=== PATIENT | male | born 1960 ===

== ENCOUNTER → 2017-02-03 | Outpatient (CLI) | payer OTHER ==
[2017-02-03 13:55] LABS: BASO % 0.7 %; BASO ABS # 0.05 K/uL (0-0.2); COMPLETE YES; EOS % 2.7 %; HEMATOCRIT 38.9 % (42-52); IG% 0.3 %; LYMPH % 40.6 %; LYMPH ABS # 2.82 K/uL (1.2-3.4); MEAN CELL VOLUME 79.2 fL (80-100); MEAN CORPUSCULAR HEMOGLOBIN 27.9 pg (25-34); MEAN CORPUSCULAR HGB CONC 35.2 g/dl (32-36); MEAN PLATELET VOLUME 11.5 fL (7.4-10.4); MONO % 5.2 %; NEUT % 50.5 %; PLATELET COUNT 214 K/uL (130-400); RED BLOOD COUNT 4.91 M/uL (4.7-6.1); WHITE BLOOD COUNT 6.95 K/uL (4.8-10.8)
[2017-02-03 15:10] LABS: CALCIUM 9.3 mg/dl (8.5-10.1)
[2017-02-03 15:13] LABS: ALT/SGPT 21 U/L (12-78); BLOOD UREA NITROGEN 7 mg/dl (7-18); BUN/CREATININE RATIO 8.8 (10-20); CARBON DIOXIDE 27 mmol/L (21-32); CHLORIDE 101 mmol/L (98-107); CREATININE 0.83 mg/dl (0.60-1.40); GLUCOSE 335 mg/dl (70-99); POTASSIUM 3.7 mmol/L (3.5-5.1); SODIUM 137 mmol/L (136-145)
[2017-02-03 15:18] LABS: ALB/GLOB RATIO 0.9 (0.9-2); ALKALINE PHOSPHATASE 136 U/L (45-117); AST/SGOT 15 U/L (15-37)
[2017-02-03 15:26] LABS: BETA-HYDROXYBUTYRATE 2.38 mg/dL (0.2-2.81)
[2017-02-03 15:29] LABS: ESTIMATED AVERAGE GLUCOSE 390 mg/dl; HA1C FLAG Normal (Normal)
== END | disposition home or self-care (01) ==
LOC: C.LABSPEC 13:38
PROVIDERS: ATTEND Family Medicine
DX: E11.9 Type 2 diabetes mellitus without complications (principal)

== ENCOUNTER → 2017-05-05 | Outpatient (CLI) | payer OTHER ==
[2017-05-05 18:21] LABS: BASO % 0.4 %; BASO ABS # 0.04 K/uL (0-0.2); COMPLETE YES; EOS % 1.6 %; HEMATOCRIT 40.2 % (42-52); IG% 0.4 %; LYMPH % 31.8 %; LYMPH ABS # 3.13 K/uL (1.2-3.4); MEAN CELL VOLUME 80.9 fL (80-100); MEAN CORPUSCULAR HEMOGLOBIN 27.2 pg (25-34); MEAN CORPUSCULAR HGB CONC 33.6 g/dl (32-36); MEAN PLATELET VOLUME 10.8 fL (7.4-10.4); MONO % 5.7 %; NEUT % 60.1 %; PLATELET COUNT 256 K/uL (130-400); RED BLOOD COUNT 4.97 M/uL (4.7-6.1); WHITE BLOOD COUNT 9.85 K/uL (4.8-10.8)
[2017-05-05 18:42] LABS: ALB/GLOB RATIO 0.7 (0.9-2); ALKALINE PHOSPHATASE 150 U/L (45-117); ALT/SGPT 25 U/L (12-78); AST/SGOT 17 U/L (15-37); BLOOD UREA NITROGEN 6 mg/dl (7-18); BUN/CREATININE RATIO 6.5 (10-20); CALCIUM 9.2 mg/dl (8.5-10.1); CARBON DIOXIDE 24 mmol/L (21-32); CHLORIDE 99 mmol/L (98-107); CHOLESTEROL 153 mg/dl (0-200); CREATININE 0.93 mg/dl (0.60-1.40); HDL CHOLESTEROL 38 mg/dl; LDL CHOLESTEROL CALCULATED 44 mg/dl; POTASSIUM 4.2 mmol/L (3.5-5.1); SODIUM 134 mmol/L (136-145); TRIGLYCERIDES 353 mg/dl (0-150); VERY LOW DENSITY LIPOPROT CALC 71 mg/dl
[2017-05-05 18:44] LABS: GLUCOSE 392 mg/dl (70-99)
[2017-05-05 18:57] LABS: BETA-HYDROXYBUTYRATE 2.06 mg/dL (0.2-2.81)
[2017-05-06 06:32] LABS: ESTIMATED AVERAGE GLUCOSE 344 mg/dl; HA1C FLAG Normal (Normal)
== END | disposition home or self-care (01) ==
LOC: C.LABSPEC 17:50
PROVIDERS: ATTEND Family Medicine
DX: E11.9 Type 2 diabetes mellitus without complications (principal); E78.2 Mixed hyperlipidemia; K21.9 Gastro-esophageal reflux disease without esophagitis

== ENCOUNTER → 2017-08-05 | Outpatient (CLI) | payer OTHER ==
[2017-08-05 18:18] LABS: BASO % 0.4 %; BASO ABS # 0.04 K/uL (0-0.2); COMPLETE YES; EOS % 1.8 %; HEMATOCRIT 41.7 % (42-52); IG% 0.4 %; LYMPH % 22.4 %; LYMPH ABS # 2.45 K/uL (1.2-3.4); MEAN CELL VOLUME 79.3 fL (80-100); MEAN CORPUSCULAR HGB CONC 34.1 g/dl (32-36); MEAN PLATELET VOLUME 11.2 fL (7.4-10.4); PLATELET COUNT 247 K/uL (130-400); RED BLOOD COUNT 5.26 M/uL (4.7-6.1); WHITE BLOOD COUNT 10.96 K/uL (4.8-10.8)
[2017-08-05 19:08] LABS: ALB/GLOB RATIO 0.8 (0.9-2); ALKALINE PHOSPHATASE 139 U/L (45-117); ALT/SGPT 28 U/L (12-78); AST/SGOT 23 U/L (15-37); BLOOD UREA NITROGEN 9 mg/dl (7-18); BUN/CREATININE RATIO 8.8 (10-20); CALCIUM 9.6 mg/dl (8.5-10.1); CARBON DIOXIDE 23 mmol/L (21-32); CHLORIDE 96 mmol/L (98-107); CHOLESTEROL 169 mg/dl (0-200); CHOLESTEROL/HDL RATIO 4.3; CREATININE 1.05 mg/dl (0.60-1.40); GLUCOSE 451 mg/dl (70-99); HDL CHOLESTEROL 39 mg/dl; LDL CHOLESTEROL CALCULATED 53 mg/dl; POTASSIUM 4.6 mmol/L (3.5-5.1); SODIUM 130 mmol/L (136-145); TRIGLYCERIDES 387 mg/dl (0-150); VERY LOW DENSITY LIPOPROT CALC 77 mg/dl
[2017-08-05 19:19] LABS: BETA-HYDROXYBUTYRATE 3.09 mg/dL (0.2-2.81)
[2017-08-06 07:35] LABS: ESTIMATED AVERAGE GLUCOSE 338 mg/dl; HA1C FLAG Normal (Normal)
== END | disposition home or self-care (01) ==
LOC: C.LABSPEC 17:54
PROVIDERS: ATTEND Family Medicine
DX: E11.9 Type 2 diabetes mellitus without complications (principal); K21.9 Gastro-esophageal reflux disease without esophagitis; E78.2 Mixed hyperlipidemia

== ENCOUNTER → 2017-11-13 | Outpatient (CLI) | payer OTHER ==
[2017-11-13 18:29] LABS: BASO % 0.3 %; BASO ABS # 0.03 K/uL (0-0.2); EOS % 1.6 %; EOS ABS # 0.16 K/uL (0-0.5); HEMATOCRIT 42.4 % (42-52); HEMOGLOBIN 14.7 g/dL (14.0-18.0); IG# 0.02 K/uL (0.00-0.02); LYMPH % 31.6 %; LYMPH ABS # 3.25 K/uL (1.2-3.4); MEAN CELL VOLUME 80.2 fL (80-100); MEAN CORPUSCULAR HEMOGLOBIN 27.8 pg (25-34); MEAN CORPUSCULAR HGB CONC 34.7 g/dl (32-36); MEAN PLATELET VOLUME 11.2 fL (7.4-10.4); MONO % 7.3 %; MONO ABS # 0.75 K/uL (0.11-0.59); NEUT ABS # 6.06 K/uL (1.4-6.5); PLATELET COUNT 319 K/uL (130-400); RED CELL DISTRIBUTION WIDTH CV 14.1 % (11.5-14.5); RED CELL DISTRIBUTION WIDTH SD 40.6 fL (36.4-46.3); WHITE BLOOD COUNT 10.27 K/uL (4.8-10.8)
[2017-11-13 20:05] LABS: ALBUMIN 3.5 gm/dl (3.4-5.0); ALKALINE PHOSPHATASE 134 U/L (45-117); ALT/SGPT 26 U/L (12-78); AST/SGOT 17 U/L (15-37); BLOOD UREA NITROGEN 17 mg/dl (7-18); CALCIUM 9.4 mg/dl (8.5-10.1); CARBON DIOXIDE 25 mmol/L (21-32); CHOLESTEROL 142 mg/dl (0-200); CREATININE 1.09 mg/dl (0.60-1.40); GLUCOSE 375 mg/dl (70-99); LDL CHOLESTEROL CALCULATED 45 mg/dl; POTASSIUM 4.5 mmol/L (3.5-5.1); SODIUM 129 mmol/L (136-145); TOTAL PROTEIN 8.3 gm/dl (6.4-8.2)
[2017-11-14 06:33] LABS: HEMOGLOBIN A1C 13.2 % (4.5-5.6)
== END | disposition home or self-care (01) ==
LOC: C.LABSPEC 17:50
PROVIDERS: ATTEND Family Medicine
DX: E11.9 Type 2 diabetes mellitus without complications (principal); E78.2 Mixed hyperlipidemia; K21.9 Gastro-esophageal reflux disease without esophagitis

== ENCOUNTER → 2018-03-02 | Outpatient (CLI) | payer OTHER ==
[2018-03-02 13:31] LABS: BASO % 0.3 %; BASO ABS # 0.03 K/uL (0-0.2); EOS % 1.6 %; EOS ABS # 0.15 K/uL (0-0.5); HEMATOCRIT 40.2 % (42-52); HEMOGLOBIN 14.4 g/dL (14.0-18.0); IG# 0.02 K/uL (0.00-0.02); LYMPH % 32.1 %; MEAN CELL VOLUME 78.4 fL (80-100); MEAN CORPUSCULAR HEMOGLOBIN 28.1 pg (25-34); MEAN CORPUSCULAR HGB CONC 35.8 g/dl (32-36); MONO % 5.5 %; MONO ABS # 0.51 K/uL (0.11-0.59); NEUT % 60.3 %; NEUT ABS # 5.64 K/uL (1.4-6.5); PLATELET COUNT 265 K/uL (130-400); RED CELL DISTRIBUTION WIDTH CV 13.4 % (11.5-14.5); RED CELL DISTRIBUTION WIDTH SD 38.1 fL (36.4-46.3); WHITE BLOOD COUNT 9.35 K/uL (4.8-10.8)
[2018-03-02 13:46] LABS: HEMOGLOBIN A1C 11.9 % (4.5-5.6)
[2018-03-02 14:01] LABS: ALBUMIN 3.5 gm/dl (3.4-5.0); ALT/SGPT 24 U/L (12-78); AST/SGOT 19 U/L (15-37); BLOOD UREA NITROGEN 11 mg/dl (7-18); CALCIUM 9.4 mg/dl (8.5-10.1); CARBON DIOXIDE 22 mmol/L (21-32); CHOLESTEROL 146 mg/dl (0-200); CREATININE 1.07 mg/dl (0.60-1.40); GLUCOSE 288 mg/dl (70-99); POTASSIUM 3.5 mmol/L (3.5-5.1); SODIUM 132 mmol/L (136-145)
[2018-03-02 14:03] LABS: ALKALINE PHOSPHATASE 137 U/L (45-117); LDL CHOLESTEROL CALCULATED 61 mg/dl; TOTAL PROTEIN 8.1 gm/dl (6.4-8.2)
== END | disposition home or self-care (01) ==
LOC: C.LABSPEC 13:03
PROVIDERS: ATTEND Family Medicine
DX: E11.9 Type 2 diabetes mellitus without complications (principal); E78.2 Mixed hyperlipidemia; K21.9 Gastro-esophageal reflux disease without esophagitis